=== PATIENT | female | born 1990 | race Caucasian/White ===

== ENCOUNTER 2017-05-07 21:38 | Inpatient (IN) | payer BC, OTHER ==
[~2017-05-07] VITALS: Ht 149.9 cm; Wt 68.2 kg
[2017-05-07] MEDS ORDERED: PRENTAB26 PO (22:56)
[2017-05-07 23:59] VITALS: Ht 149.9 cm; Wt 68.2 kg
[2017-05-08] MEDS ORDERED: LACTATED RINGER'S 1000ML 1,000 ML IV PRN (00:10)
[2017-05-08] MEDS ORDERED: BUPIVACAINE 0.25% 30 ML VIAL ONE ×2 (00:24→16:33)
[2017-05-08] MEDS ORDERED: EpHEDrine SULFATE INJ 50 MG/ML AMP ONE (00:25)
[2017-05-08] MEDS ORDERED: FENTANYL CITRATE INJ 50 MCG/1 ML 2 ML VIAL ONE ×2 (00:25→19:09)
[2017-05-08] MEDS ORDERED: FENTANYL 2MCG/ML ROPIV 1.25MG/ML 100ML BAG EPI ONE (00:25)
[2017-05-08 00:40] LABS: HEMATOCRIT 33.1 % (37-47); MEAN CELL VOLUME 78.8 fL (80-100); MEAN CORPUSCULAR HEMOGLOBIN 26.2 pg (25-34); MEAN CORPUSCULAR HGB CONC 33.2 g/dl (32-36); MEAN PLATELET VOLUME 8.9 fL (7.4-10.4); PLATELET COUNT 231 K/uL (130-400); WHITE BLOOD COUNT 10.92 K/uL (4.8-10.8)
[2017-05-08] MEDS ORDERED: NALOXONE HCL INJ 1 MG in SODIUM CHLORIDE 0.9% 1000ML 1,000 ML IV PRN (01:11)
[2017-05-08] MEDS ORDERED: LACTATED RINGER'S 1000ML 500 ML IV PRN ×2 (01:11→09:19)
[2017-05-08] MEDS ORDERED: NALBUPHINE HCL INJ 10 MG/ML AMP IV PRN (01:15)
[2017-05-08] MEDS ORDERED: ONDANSETRON INJ 2 MG/ML 2 ML VIAL IV PRN (01:15)
[2017-05-08] MEDS ORDERED: NALOXONE HCL INJ 0.4 MG/1 ML VIAL/CARP IV PRN (01:15)
[2017-05-08] MEDS ORDERED: EpHEDrine SULFATE INJ 50 MG/ML AMP IV PRN (01:15)
[2017-05-08] MEDS: LACTATED RINGER'S 1000ML 1,000 ML IV SCH ×3 (01:18→14:50)
[2017-05-08] MEDS: FENTANYL 2MCG/ML ROPIV 1.25MG/ML 100ML BAG EPI PRN ×3 (06:53→15:08)
[2017-05-08] MEDS ORDERED: OXYTOCIN 30 UNITS/500ML NSS IV PRN (09:30)
[2017-05-08 13:55] LABS: BASO % 0.1 %; BASO ABS # 0.02 K/uL (0-0.2); COMPLETE YES; EOS % 0.1 %; IG% 0.5 %; LYMPH ABS # 1.42 K/uL (1.2-3.4); MEAN CELL VOLUME 80.5 fL (80-100); MEAN CORPUSCULAR HEMOGLOBIN 26.2 pg (25-34); MEAN CORPUSCULAR HGB CONC 32.6 g/dl (32-36); MEAN PLATELET VOLUME 8.8 fL (7.4-10.4); MONO % 7.3 %; PLATELET COUNT 207 K/uL (130-400); RED BLOOD COUNT 4.35 M/uL (4.2-5.4); WHITE BLOOD COUNT 15.82 K/uL (4.8-10.8)
[2017-05-08] MEDS: AMPICILLIN IV 2,000 MG in SODIUM CHLOR 0.9% AD-VAN 100ML 100 ML IV SCH ×2 (15:17→19:45)
[2017-05-08] MEDS: GENTAMICIN IV SCH (15:50)
[2017-05-08] MEDS: DEXTROSE 5% IV SCH (15:50)
[2017-05-08] MEDS ORDERED: LACTATED RINGER'S 1000ML 1,000 ML IV ONE (18:13)
[2017-05-08] MEDS ORDERED: CITRIC ACID/SODIUM CITRATE 15 ML UDC PO ONE (18:15)
--- NOTE | 2017-05-08 18:21 | History and Physical ---
History & Physical Date & Time of Service: May 08, 2017 at 18:15 Chief Complaint: Check Labor Primary Care Physician: No Doctor, Assigned History of Present Illness Source: patient 26 yo at 39.5 wks presented last night with ctxs and admitted for labor SROM'ed this morning around 5 am Augmented her ctxs with pitocin Arrest of descent in active second phase of labor despite adequate ctxs and good pushing efforts Persistent OP Patient desires Csection, see QS notes for details of labor Past Medical/Surgical History none Social History Smoking Status: Never Smoker Smokeless Tobacco Use: No Alcohol Use: none Drug Use: none Marital Status: Housing status: lives with family Occupational Status: employed Multi-Drug Resistant Organisms History of MDRO: No Allergies Coded Allergies: Diphenhydramine (Verified Allergy, Severe, ANAPHYLAXIS, 05/07/17) edema of airway Home Medications Scheduled Multivit/Min/Iron/Fol Ac/Pren ( Vitamin), 1 TAB PO DAILY Review of Systems Constitutional: + fever, + chills, + sweats, + weight loss, + weakness, + fatigue, + problem reported Eyes: No worsening of vision, No eye pain, No redness, No discharge, No diplopia, No problem reported ENT: No hearing loss, No unusual epistaxis, No nasal symptoms, No sore throat, No tinnitus, No dental problems, No trouble swallowing, No problem reported Respiratory: No cough, No sputum, No wheezing, No shortness of breath, No dyspnea on exertion, No dyspnea at rest, No hemoptysis, No problem reported Cardiovascular: No chest pain, No orthopnea, No PND, No edema, No claudication , No palpitations, No problem reported Abdomen: No pain, No nausea, No vomiting, No diarrhea, No constipation, No GI bleeding, No problem reported Musculoskeletal: No joint pain, No muscle pain, No swelling, No calf pain, No problem reported Neurologic: No memory loss, No paralysis, No weakness, No numbness/tingling, No vertigo, No balance problems, No problem reported Physical Exam General Appearance: WD/WN, + mild distress Head: normocephalic, atraumatic Eyes: normal inspection, PERRL ENT: normal ENT inspection Neck: supple, no adenopathy Respiratory/Chest: chest non-tender, lungs clear Cardiovascular: regular rate, rhythm Abdomen/GI: soft, + pertinent finding (gravid) Genitourinary - Female: + pertinent finding (caput succanadeum, occiput posterior) Back: normal inspection, no CVA tenderness Extremities/Musculoskelatal: normal inspection, + pedal edema Skin: normal color, warm/dry, no rash Diagnostics Laboratory Results Results Past 24 Hours Test 05/08/17 00:24 05/08/17 13:43 Range/Units White Blood Count 10.92 15.82 4.8-10.8 K/uL Red Blood Count 4.20 4.35 4.2-5.4 M/uL Hemoglobin 11.0 11.4 12.0-16.0 g/dL Hematocrit 33.1 35.0 37-47 % Mean Corpuscular Volume 78.8 80.5 80-100 fL Mean Corpuscular Hemoglobin 26.2 26.2 25-34 pg Mean Corpuscular Hemoglobin Concent 33.2 32.6 32-36 g/dl RDW Standard Deviation 39.7 41.4 36.4-46.3 fL RDW Coefficient of Variation 14.0 14.2 11.5-14.5 % Platelet Count 231 207 130-400 K/uL Mean Platelet Volume 8.9 8.8 7.4-10.4 fL Neutrophils (%) (Auto) 83.0 % Lymphocytes (%) (Auto) 9.0 % Monocytes (%) (Auto) 7.3 % Eosinophils (%) (Auto) 0.1 % Basophils (%) (Auto) 0.1 % Neutrophils # (Auto) 13.13 1.4-6.5 K/uL Lymphocytes # (Auto) 1.42 1.2-3.4 K/uL Monocytes # (Auto) 1.16 0.11-0.59 K/uL Eosinophils # (Auto) 0.01 0-0.5 K/uL Basophils # (Auto) 0.02 0-0.2 K/uL Immature Granulocyte % (Auto) 0.5 % Immature Granulocyte # (Auto) 0.08 0.00-0.02 K/uL Impression Assessment and Plan 26 yo at 39. wks , arrest of descent, persisten O[ Being treated for intraamniotic infection Plan: primary Csection Understands the risks, signed the informed consent see QS notes Advanced Directives Existing Living Will: No Existing Power of Rehabilitator: No VTE Prophylaxis VTE Risk Assessment Done? Y/N: Yes Risk Level: Moderate
[2017-05-08] MEDS ORDERED: CLINDAMYCIN IV 900 MG in DEXTROSE 5% 100ML 100 ML IV SCH (18:30)
[2017-05-08] MEDS ORDERED: MORPHINE SULFATE PF 2MG/2ML SYR ONE (19:10)
[2017-05-08] MEDS ORDERED: PROPOFOL IV EMULSION 10 MG/ML 20 ML VIAL IV ONE (19:32)
[2017-05-08] MEDS ORDERED: OXYTOCIN INJ 10 UNITS/ML VIAL ONE ×2 (19:33→20:10)
[2017-05-08] MEDS ORDERED: SUCCINYLCHOLINE CHLORIDE 20 MG/ML 10 ML VIAL IV ONE (19:33)
[2017-05-08] MEDS ORDERED: PHENYLEPHRINE 100MCG/ML 5ML SYR ONE (19:33)
[2017-05-08] MEDS ORDERED: METHYLERGONOVINE MALEATE 0.2 MG/ML AMP ONE (19:48)
[2017-05-08] MEDS ORDERED: MoRPHine SULFATE PF 1 MG/ML 10 ML AMP/VIAL EPI PRN (20:00)
[2017-05-08] MEDS ORDERED: CONTINUE MEDICATION ONE (20:00)
[2017-05-08] MEDS ORDERED: MoRPHine SULFATE 2 MG/ML CARP IV PRN (20:00)
[2017-05-08] MEDS ORDERED: NO NARCOTICS OR SEDATIVES SCH (20:00)
[2017-05-08] MEDS ORDERED: SUPERCREAM 0.870 % 15GM JAR EXT PRN (20:15)
[2017-05-08] MEDS ORDERED: DIPHTHERIA/TETANUS/PERTUSSIS 0.5 ML SYR/VIAL IM. ONE (20:15)
[2017-05-08] MEDS ORDERED: HYDROCORTISONE ACETATE 25 MG SUPP PR PRN (20:15)
[2017-05-08] MEDS ORDERED: SENNA 8.6 MG TAB PO PRN (20:15)
[2017-05-08] MEDS ORDERED: MAGNESIUM HYDROXIDE SUSP 30 ML UDC PO PRN (20:15)
[2017-05-08] MEDS ORDERED: BENZOCAINE 20% AER SPR 82.5 GM CAN EXT PRN (20:15)
[2017-05-08] MEDS ORDERED: LACTATED RINGER'S 1000ML 1,000 ML IV SCH (20:15)
[2017-05-08] MEDS ORDERED: LANOLIN OINT EXT PRN ×2 (20:15)
[2017-05-08] MEDS ORDERED: MEASLES, MUMPS & RUBELLA VIRUS VIAL SQ. ONE (20:15)
[2017-05-08] MEDS ORDERED: OXYTOCIN INJ 20 UNITS in LACTATED RINGER'S 1000ML 1,000 ML IV SCH (21:30)
[2017-05-08] MEDS: KETOROLAC TROMETHAMINE 30 MG/ML VIAL IV. PRN (22:06)
[2017-05-08] MEDS: OXYTOCIN INJ 20 UNITS in D5W AND LACTATED RINGERS 1,000 ML IV SCH (22:30)
--- NOTE | 2017-05-08 22:57 | Anesthesiology Progress Note ---
Anesthesia Post Op Note Date & Time May 08, 2017 at 22:57 Vital Signs Pain Intensity: 4.0 Notes Mental Status: alert / awake / arousable, participated in evaluation Pt Amnestic to Procedure: Yes Nausea / Vomiting: adequately controlled Pain: adequately controlled Airway Patency, RR, SpO2: stable & adequate BP & HR: stable & adequate Hydration State: stable & adequate Neuraxial Anesthesia: was administered, sensory block is resolving Anesthetic Complications: no major complications apparent
--- NOTE | 2017-05-08 23:01 | OPERATIVE REPORT ---
DATE OF OPERATION: 05/08/2017 PREOPERATIVE DIAGNOSIS: The patient is a 26-year-old G1, P0 at 39 weeks and 4 days of gestation, and arrest of descent at second stage of labor and persistent occiput posterior position and maternal fever suggesting intra-amniotic infection. POSTOPERATIVE DIAGNOSIS: Same. PROCEDURE: Primary low transverse via Pfannenstiel skin incision. SURGEON: Dr. Gee. NUT GRADER: Dr. Wild. ESTIMATED BLOOD LOSS: 800. FLUIDS: 2000 mL of lactated Ringer. SPECIMENS: Placenta and cord blood. DRAINS: Wills catheter drained 125 mL of urine. ANESTHESIA: Spinal, Dr. Traore. COMPLICATIONS: None. FINDINGS: Baby was a viable female infant, Apgars 9/9, delivered at 19:27 p.m. and weight was 3538 grams. Baby was in cephalic presentation with occiput posterior position, molding and caput succedaneum. Maternal findings: Normal uterus, fallopian tubes and ovaries. PROCEDURE: The patient was taken to the operating room where epidural anesthesia was found to be inadequate. She was given spinal anesthesia without difficulty. She was placed in dorsal supine position with a leftward tilt. She was prepared and draped in usual sterile fashion. A Pfannenstiel skin incision was made and carried through to the underlying layer of fascia with the Bovie. The fascia was incised in midline and incision extended laterally with the help of Brothers scissors. The upper aspect of the fascial incision was then grasped with 2 Liss clamps, elevated, underlying rectus muscles were dissected off sharply with Brothers scissors. The lower aspect of the fascial incision was then grasped with 2 Liss clamps, elevated, underlying rectus muscles are dissected sharply with Brothers scissors and the rectus muscles were in the midline and peritoneum was entered bluntly with fingers. Peritoneal incision was extended superiorly and inferiorly with good visualization of the bladder. Bladder blade was inserted. Vesicouterine peritoneum was identified, grasped with pickups, entered sharply with Metzenbaum scissors and bladder flap was created digitally and bladder blade was reinserted. Lower uterine segment was incised in transverse fashion. Incision was extended laterally with the help of fingers. Clear amniotic fluid was obtained and then the baby's head was brought to the incision from vagina manually and the head was delivered without difficulty. Shoulders were delivered with minimal traction and mouth and nose were suctioned. Cord was clamped x2 and cut and baby was handed off to the awaiting commercial manager, Dr. Reyes. The cord blood was obtained. Placenta was delivered manually as intact and complete. Uterus was exteriorized, cleared of all the clots and debris. Uterine incision was repaired with 0 Vicryl in a running locked fashion and a second imbricating layer was placed with the same suture of 0 Vicryl in a running locked fashion. Excellent hemostasis was achieved. Posterior cul-de-sac was checked to be intact with no sutures felt and it was irrigated with warm normal saline and suctioned. The patient's ovaries and fallopian tubes were noted to be normal. Incision was checked to be hemostatic again and the uterus was returned to the abdomen. Pelvis was irrigated with warm normal saline and suctioned. Incision was checked to be again hemostatic. Parietal peritoneum was reapproximated with 3-0 Vicryl in a running fashion. Rectus muscles were reapproximated with the same suture in a running fashion and the rectus fascia was reapproximated with 0 Vicryl in a running fashion starting from both corners and meeting in the midline. The subcuticular fat tissue was brought together with 3-0 Vicryl in a running fashion. Skin was closed with 4-0 Monocryl in a subcuticular fashion. The patient tolerated the procedure well. Sponge, lap, needle and instrument counts were correct x3. She was given 2 grams of ampicillin and 900 mg of clindamycin before surgery. She was given 3 grams of gentamicin earlier during labor and those to be continued . She was brought to recovery room in stable condition. No complication happened. I was and Dr. Wild present during whole procedure. I attest to the content of the Intraoperative Record and any orders documented therein. Any exceptions are noted below. ASHU
[2017-05-08 23:30] VITALS: BP 118/81; PULSE 88; TEMP 36.5; O2SAT 94
[2017-05-08] MEDS: MEPERIDINE HCL 25 MG/ML CARP IV PRN (23:57)
[2017-05-09] VITALS (21 sets, daily range): BP systolic 97–119; BP diastolic 65–84; PULSE 81–108; TEMP 36.5–36.9; O2SAT 94–97
[2017-05-09] MEDS: CLINDAMYCIN IV 900 MG in DEXTROSE 5% 100ML 100 ML IV SCH ×3 (02:51→18:37)
[2017-05-09] MEDS: AMPICILLIN IV 2,000 MG in SODIUM CHLOR 0.9% AD-VAN 100ML 100 ML IV SCH ×5 (03:48→22:00)
[2017-05-09] MEDS: KETOROLAC TROMETHAMINE 30 MG/ML VIAL IV. PRN ×3 (03:49→16:22)
[2017-05-09 06:52] LABS: BASO % 0.1 %; BASO ABS # 0.01 K/uL (0-0.2); COMPLETE YES; EOS % 0.2 %; HEMATOCRIT 30.2 % (37-47); IG% 0.3 %; LYMPH % 9.4 %; LYMPH ABS # 1.37 K/uL (1.2-3.4); MEAN CELL VOLUME 80.5 fL (80-100); MEAN CORPUSCULAR HEMOGLOBIN 25.3 pg (25-34); MEAN CORPUSCULAR HGB CONC 31.5 g/dl (32-36); MEAN PLATELET VOLUME 8.5 fL (7.4-10.4); MONO % 7.1 %; NEUT % 82.9 %; PLATELET COUNT 180 K/uL (130-400); RED BLOOD COUNT 3.75 M/uL (4.2-5.4); WHITE BLOOD COUNT 14.55 K/uL (4.8-10.8)
[2017-05-09] MEDS: FERROUS SULFATE 325 MG TAB PO SCH (08:00)
[2017-05-09] MEDS: DOCUSATE SODIUM 100 MG CAP PO SCH ×2 (08:00→19:44)
[2017-05-09] MEDS: PRENATAL VITAMIN TAB PO SCH (08:00)
[2017-05-09] MEDS: SIMETHICONE 80 MG CHEW PO SCH ×4 (08:00→19:44)
[2017-05-09] MEDS: MEPERIDINE HCL 25 MG/ML CARP IV PRN (08:06)
[2017-05-09] MEDS: OXYTOCIN INJ 20 UNITS in D5W AND LACTATED RINGERS 1,000 ML IV SCH (08:26)
--- NOTE | 2017-05-09 11:20 | Surgery Progress Note ---
Surgery Progress Note Date of Service May 09, 2017. Subjective Post OP Day: 1 + feeling well, + ambulating, + flatus, + pain controlled Objective Vital Signs: Date Time Temp Pulse Resp B/P (MAP) Pulse Ox O2 Delivery O2 Flow Rate FiO2 05/09/17 10:00 16 94 05/09/17 09:00 18 94 05/09/17 08:00 18 94 05/09/17 08:00 94 Room Air 05/09/17 07:35 36.7 86 20 115/80 (92) 96 Room Air 05/09/17 07:00 18 95 05/09/17 06:00 20 94 05/09/17 05:00 20 94 05/09/17 04:00 20 95 05/09/17 04:00 36.5 97 20 119/84 (96) 95 Room Air 05/09/17 03:00 18 94 05/09/17 02:00 18 94 05/09/17 01:00 18 94 05/09/17 00:30 81 20 112/78 (89) 94 Room Air 05/09/17 00:01 20 94 05/08/17 23:30 94 Room Air 05/08/17 23:30 94 Room Air 05/08/17 23:30 36.5 88 18 118/81 (93) 94 Room Air 05/08/17 23:30 18 94 Abdomen: non tender, non distended, soft Incision(s): clean, dry, intact Extremities: non-tender, normal inspection, no pedal edema Laboratory Results: Results Past 24 Hours Test 05/08/17 13:43 05/09/17 06:43 Range/Units White Blood Count 15.82 14.55 4.8-10.8 K/uL Red Blood Count 4.35 3.75 4.2-5.4 M/uL Hemoglobin 11.4 9.5 12.0-16.0 g/dL Hematocrit 35.0 30.2 37-47 % Mean Corpuscular Volume 80.5 80.5 80-100 fL Mean Corpuscular Hemoglobin 26.2 25.3 25-34 pg Mean Corpuscular Hemoglobin Concent 32.6 31.5 32-36 g/dl Platelet Count 207 180 130-400 K/uL Mean Platelet Volume 8.8 8.5 7.4-10.4 fL Neutrophils (%) (Auto) 83.0 82.9 % Lymphocytes (%) (Auto) 9.0 9.4 % Monocytes (%) (Auto) 7.3 7.1 % Eosinophils (%) (Auto) 0.1 0.2 % Basophils (%) (Auto) 0.1 0.1 % Neutrophils # (Auto) 13.13 12.06 1.4-6.5 K/uL Lymphocytes # (Auto) 1.42 1.37 1.2-3.4 K/uL Monocytes # (Auto) 1.16 1.04 0.11-0.59 K/uL Eosinophils # (Auto) 0.01 0.03 0-0.5 K/uL Basophils # (Auto) 0.02 0.01 0-0.2 K/uL RDW Standard Deviation 41.4 41.7 36.4-46.3 fL RDW Coefficient of Variation 14.2 14.3 11.5-14.5 % Immature Granulocyte % (Auto) 0.5 0.3 % Immature Granulocyte # (Auto) 0.08 0.04 0.00-0.02 K/uL Assessment & Plan regular diet POD#1 advance diet/care
[2017-05-09] MEDS: GENTAMICIN IV SCH (15:12)
[2017-05-09] MEDS: DEXTROSE 5% IV SCH (15:12)
[2017-05-09] MEDS ORDERED: DC INTRASPINAL MORPHINE SCH (19:00)
[2017-05-09] MEDS ORDERED: KETOROLAC TROMETHAMINE 30 MG/ML VIAL IV. PRN (19:00)
[2017-05-09] MEDS ORDERED: ONDANSETRON INJ 2 MG/ML 2 ML VIAL IV PRN (19:00)
[2017-05-09] MEDS ORDERED: MEPERIDINE HCL 50 MG/ML CARP IV PRN ×2 (19:00)
[2017-05-09] MEDS ORDERED: PROMETHAZINE HCL INJ 25 MG in SODIUM CHLORIDE 0.9% 50ML 50 ML IV PRN (19:00)
[2017-05-09] MEDS ORDERED: OXYCODONE/ACETAMINOPHEN 5-325 TAB PO PRN (19:00)
[2017-05-09] MEDS: IBUPROFEN 600 MG TAB PO PRN (19:44)
[2017-05-09] MEDS: OXYCODONE/ACETAMINOPHEN 5-325 TAB PO PRN (19:45)
[2017-05-09] MEDS ORDERED: BISACODYL 5 MG TABEC PO ONE (22:00)
[2017-05-10] MEDS: AMPICILLIN IV 2,000 MG in SODIUM CHLOR 0.9% AD-VAN 100ML 100 ML IV SCH ×2 (04:13→10:08)
[2017-05-10] MEDS: IBUPROFEN 600 MG TAB PO PRN ×5 (05:24→21:47)
[2017-05-10 06:47] LABS: HEMATOCRIT 25.8 % (37-47)
[2017-05-10 07:45] VITALS: BP 96/65; PULSE 92; TEMP 36.5
[2017-05-10] MEDS: FERROUS SULFATE 325 MG TAB PO SCH (07:52)
[2017-05-10] MEDS: PRENATAL VITAMIN TAB PO SCH (07:52)
[2017-05-10] MEDS: DOCUSATE SODIUM 100 MG CAP PO SCH ×2 (07:52→19:53)
[2017-05-10] MEDS: SIMETHICONE 80 MG CHEW PO SCH ×4 (07:52→19:53)
--- NOTE | 2017-05-10 08:10 | OB/GYN Progress Note ---
[facility] Progress Note Date of Service May 10, 2017. Subjective conversation w/ patient, physical exam Ambulation: ambulating normally Voiding: no voiding problems Passing Gas: Yes Diet Tolerance: Regular Diet Lochia: Small Pain: 3/10 Notes: Doing well, no concerns. Pain well controlled. Ambulating without difficulty. Tolerating regular diet, +flatus, -BM. Review of Systems Constitutional: No fever, No chills, No sweats, No weight loss, No weakness, No fatigue, No problem reported Respiratory: No cough, No sputum, No wheezing, No shortness of breath, No dyspnea on exertion, No dyspnea at rest, No hemoptysis, No problem reported Cardiac: No chest pain, No orthopnea, No PND, No edema, No claudication, No palpitations, No problem reported Abdomen: No pain, No nausea, No vomiting, No diarrhea, No constipation, No GI bleeding, No problem reported Objective Vital Signs Date Time Temp Pulse Resp B/P (MAP) Pulse Ox O2 Delivery O2 Flow Rate FiO2 05/09/17 23:35 36.5 88 18 97/65 (76) Room Air 05/09/17 23:35 Room Air 05/09/17 19:50 36.7 108 18 109/75 (86) 97 Room Air 05/09/17 15:30 96 Room Air 05/09/17 15:30 36.7 106 20 105/72 (83) 96 Room Air 05/09/17 15:00 18 97 05/09/17 14:00 18 96 05/09/17 13:00 18 96 05/09/17 12:00 18 95 05/09/17 12:00 36.9 95 18 101/69 (80) 96 Room Air 05/09/17 11:00 18 96 05/09/17 10:00 16 94 05/09/17 09:00 18 94 Physical Exam General Appearance: WELL-APPEARING Abdomen: normal bowel sounds, soft Fundus: Firm Incision Description: Clean, Dry & Intact Extremities: normal range of motion, non-tender, no calf tenderness Laboratory Results Last 24 Hours Test 05/10/17 06:08 Hemoglobin 8.4 g/dL Hematocrit 25.8 % Assessment and Plan Post-Op Day Number: 2 Continue Routine Care: -Continue routine postop care -Incision dressing removed and is c/d/i -Anticipate d/c home tomorrow
[2017-05-10] MEDS: OXYCODONE/ACETAMINOPHEN 5-325 TAB PO PRN ×4 (09:34→21:47)
[2017-05-10] MEDS ORDERED: NURSING VERBAL MED ORDER ONE (11:30)
[2017-05-10 15:30] VITALS: BP 120/84; PULSE 86; TEMP 36.4
[2017-05-10] MEDS ORDERED: BISACODYL 10 MG SUPP PR PRN (20:15)
[2017-05-10 23:30] VITALS: BP 110/77; PULSE 99; TEMP 36.4
[2017-05-11] MEDS: IBUPROFEN 600 MG TAB PO PRN ×2 (02:45→07:13)
[2017-05-11] MEDS: OXYCODONE/ACETAMINOPHEN 5-325 TAB PO PRN ×2 (02:46→07:14)
[2017-05-11 07:25] VITALS: BP 118/83; PULSE 96; TEMP 36.4; O2SAT 100
[2017-05-11 07:40] VITALS: BP 106/72; PULSE 85; TEMP 36.7; O2SAT 96
[2017-05-11] MEDS: FERROUS SULFATE 325 MG TAB PO SCH (07:47)
[2017-05-11] MEDS: SIMETHICONE 80 MG CHEW PO SCH ×2 (07:47→12:40)
[2017-05-11] MEDS: PRENATAL VITAMIN TAB PO SCH (07:47)
[2017-05-11] MEDS: DOCUSATE SODIUM 100 MG CAP PO SCH (07:47)
[2017-05-11] MEDS ORDERED: MTR600X PO (09:16)
[2017-05-11] MEDS ORDERED: OXYC-57 PO (09:16)
--- NOTE | 2017-05-11 09:18 | Discharge Instructions ---
Discharge Instructions Date of Service May 11, 2017. Admission Reason for Admission: Check Labor Discharge Discharge Diagnosis / Problem: term delivered Discharge Goals Goal(s): Routine recovery after delivery Activity Recommendations Activity Limitations: as noted below Lifting Limitations: no more than 10 pounds Exercise/Sports Limitations: gradually increase as tolerated May Resume Sexual Activity: after follow-up appointment Shower/Bathe: no limitations Driving or Machine Use: resume 3 days after discharge . Instructions / Follow-Up Instructions / Follow-Up ACTIVITY RECOMMENDATIONS: * Gradual return to full activity over the next 2-3 weeks. * No lifting - nothing heavier than baby over the next 2-3 weeks. * Do not engage in vigorous exercise, sexual activity or sports until cleared by your physician. * Do not drive or operate any motorized equipment until cleared by your physician. * You may shower/bathe daily. BREAST CARE: If you are not breast feeding: * Wear a supportive bra 24 hours a day for one to two weeks. * Avoid stimulating your breasts and nipples as much as possible during the first few weeks after delivery. * When taking a shower, have the warm water hit your back, not breasts. * When your breasts feel full, apply ice packs. Usually three to four times a day helps ease the discomfort. * Take a mild pain medication (Tylenol/Motrin) when you are uncomfortable. If breast feeding: * Use breast milk to lubricate nipples. Lansinoh cream may be used for sore nipples. You do not need to remove cream prior to breast feeding. If using a different brand of cream, check the label for directions regarding removal of cream prior to nursing. * Wear a supportive bra. * If having problems with breasts or breast feeding, call a wine consultant or your health care provider. EPISIOTOMY CARE: After delivery, if you have an episiotomy (stitches), the following steps will ease discomfort and aid healing. * For the first 24 hours after delivery, place ice packs next to your episiotomy to help reduce swelling. * After the first 24 hour-period, sitz baths, either portable or in the tub, are suggested. A shower with a shower arm sprayed over the episiotomy may be comforting. * Kayleen care should be done after each voiding and bowel movement. Squirt warm water from a plastic bottle over the perineum (region of the body between the anus and urinary opening) and pat dry. * Use Dermoplast to ease discomfort. Shake container. [place] directly over the episiotomy. * Place a Tucks on a clean sanitary pad next to your episiotomy. OVER THE COUNTER MEDICATION: * For discomfort or pain, you may use Acetaminophen (Tylenol), Ibuprofen (Advil ), or Naproxen (Aleve) following the package directions. * For constipation you may use Colace following the package directions. SPECIAL CARE INSTRUCTIONS: When you are discharged from the hospital, it is important for you to follow the instructions listed below: * During the first week at home, you should be able to care for yourself and your baby. In addition, the usual light household activities are encouraged. * Limit your activities to the way you feel. Do not try to clean the house or move furniture. Be sensible. * If you actively engage in sports and have done so up until the time of your delivery, you may resume these activities as soon as you feel able. This may take up to one month or even longer. Use good judgment. * Continue to take your vitamins for at least six weeks after the of your baby. * Your diet need not be limited unless you were on a special diet before your delivery. Breast-feeding mothers need around 2500 calories per day and at least 64-80 ounces of fluid per day (8 to 10 glasses). * You should eat foods from the four major food groups. Crash diets or fad diets are to be avoided. Eating lean meats, fresh fruits and vegetables, low-fat dairy products, high fiber foods and a regular exercise program, will help you get back to your pre- weight without putting your health at risk. * Constipation is sometimes a problem after delivery. Take a mild laxative as needed. If breast feeding, Milk of Magnesia is acceptable to use. You may use a suppository or Fleets enema if no episiotomy. * A daily shower or tub bath is suggested. Be sure to thoroughly and gently dry the perineum. * A bloody vaginal discharge will usually continue until around four weeks post . A small amount of bleeding may continue for as long as six weeks. Vaginal discharge changes from the bright red bleeding after delivery to pink then brownish and finally yellowish-pink before becoming white and disappearing. * Bleeding may increase with activity. Your first period may come in 4-8 weeks. If you are breast feeding, your period may be delayed even longer. * [place] (sex) can begin whenever both you and your partner feel comfortable and do not have any form of genital infection. It is recommended that you wait until after your return appointment and discuss with your physician. If you have questions, please talk to your health care practitioner. A condom should be used to prevent infection and . * Foreplay, gentle intercourse and lubrication is very important the first several times to prevent pain. A water-based lubricant such as K-Y jelly or Astroglide may be used. * Tampons may be used six weeks after delivery. * Douching should be avoided for 6 weeks after delivery. * If you have RH negative blood and your baby is RH positive, you will receive RHOGAM by injection prior to discharge. The nurse will give you a card to keep with you that has the date and place that you received RHOGAM after delivery. * During your care, you had a Rubella screen done to check for the presence of rubella antibodies in your blood. If your test was negative, you will receive a Rubella vaccine prior to discharge. This vaccine may cause a fever, soreness at the injection site and flu-like symptoms. If these symptoms persist, notify your health care practitioner. is not advised for three months after a Rubella vaccine. There is a higher chance of having a baby with defects if conceived within three months of getting the vaccine. * If you were discharged 24 hours from delivery or before 48 hours: Visiting nurses will come to your home 48 hours after discharge to assess you and your baby. The visiting nurse will meet with you while you are in the hospital to arrange a time and get directions to your home. * Verbalizes understanding of car seat law as reviewed with patient nursing. * Car Seat hand-out given and reviewed with patient by nursing. * Shaken baby information reviewed with patient by nursing. Call you doctor if: * Heavy bleeding (saturating several pads an hour) or passing clots the size of your fist. * A fever >101 degrees F (38.3 degrees C) on two occasions four hours apart and/or chills. * Unusual pain in the pelvic or vaginal areas. * "Baby Blues" lasting longer than two weeks. If you have any questions or concerns, call your health care practitioner at . FOLLOW-UP VISIT: * Please call the office at to schedule a 6 week examination. It is important you keep this appointment. * It is important for you to make arrangements for either yearly or twice yearly check-ups thereafter. Current Hospital Diet Patient's current hospital diet: Regular OB Diet Discharge Diet Recommended Diet: Regular OB Diet Procedures Procedures Performed: Primary low uterine transverse section Pending Studies Studies pending at discharge: no Medical Emergencies . Who to Call and When: Medical Emergencies: If at any time you feel your situation is an emergency, please call 911 immediately. . Non-Emergent Contact Non-Emergency issues call your: Primary Care Provider . . "Provider Documentation" section prepared by Allen Pulido. . VTE Core Measure Inpt VTE Proph given/why not?: Treatment not indicated
--- NOTE | 2017-05-11 09:20 | Surgery Progress Note ---
Surgery Progress Note Date of Service May 11, 2017. Subjective Post OP Day: 3 + feeling well, + ambulating, + flatus, + pain controlled, + diet Objective Vital Signs: Date Time Temp Pulse Resp B/P (MAP) Pulse Ox O2 Delivery O2 Flow Rate FiO2 05/11/17 07:25 36.4 96 20 118/83 (95) 100 Room Air 05/10/17 23:30 36.4 99 18 110/77 (88) Room Air 05/10/17 23:30 Room Air 05/10/17 15:30 Room Air 05/10/17 15:30 36.4 86 20 120/84 (96) Room Air General Appearance: no apparent distress Abdomen: non tender, non distended, soft Incision(s): clean, dry, intact Extremities: normal range of motion, non-tender, normal inspection, no pedal edema Assessment & Plan POD#3 discharged POD#1 advance diet/care
[2017-05-11 12:25] VITALS: BP_DIAS 72; PULSE 85; TEMP 36.7
== END 2017-05-11 12:40 | disposition home or self-care (01) | DRG 766 ==
LOC: C.OPB 21:38 → C.LD 21:40 → C.OPB 23:25 → C.LD 23:25 → C.OBG 05-08 23:20
PROVIDERS: ADMIT Obstetrics & Gynecology; ATTEND Obstetrics & Gynecology
PROC: 10D00Z1 Extraction of Products of Conception, Low, Open Approach (ICD-10-PCS; principal; 2017-05-08 18:51)
DX: O62.1 Secondary uterine inertia (principal); O75.81 Maternal exhaustion complicating labor and delivery; Z3A.39 39 weeks gestation of pregnancy; Z37.0 Single live birth

== ENCOUNTER 2023-02-11 07:30 | Inpatient (IN) ==
--- NOTE | 2023-02-01 10:29 | Anesthesiology Consultation ---
Date of Service February 01, 2023 Assessment & Plan (1) Encounter for pre-operative examination: Chart Review Chart Review: data entry clerk initiated -COVID screening: Per PAT nursing assessment on 02/01/23. No known COVID-19 positive contacts or current COVID-19 related symptoms. Travel screen negative. Patient is NOT vaccinated for Covid. At surgeon discretion if preop Covid testing being done. 05/08/17= Done under SAB at L3-4 with 1 attempt. "Pt to the OR by Dr. Rodriguez she appeared to be very uncomfortable so Dr. Rodriguez pulled epidural for spinal placement. Spinal anesthetic placed uneventfully. Patient stated that she felt SOB but was able to talk. D nurse held O2, while propofol and SMX drawn up to prepare for intubation. Pt also placed in reverse [place]. Pt maintained stable vitals so intubation was not attempted." History Surgery Operation Date: 02/11/23 07:30 Proposed Procedures p Section (Delivery of Baby Through Abdominal Incision) - Allen Fernandez MD, FACOG Height/Weight Height: 4 ft 11 in Weight: 71.668 kg Allergies Allergy/AdvReac Type Severity Reaction Status Date / Time diphenhydramine Allergy Severe ANAPHYLAXIS Verified 01/31/23 11:37 Medications Home Medications Medication Instructions Recorded Confirmed Last Taken prenat.vits,antonio,[id number] 1 tab PO DAILY 07/07/22 02/01/23 Unknown Past Medical History Medical History No known health problems Past Family History Family History Denies family history of Ovarian cancer Breast cancer Colorectal cancer Past Surgical History Surgical History S/P section S/P loop electrosurgical excision procedure Social History Smoking Status: Former smoker tobacco type: cigarettes Smoking cigarettes per day: quit ~7 yrs ago Do You Dip or Chew Tobacco: No Hx Alcohol Use: No Hx Substance Use: No substance use type: does not use
[~2023-02-11 07:30] MED LIST: CITRIC ACID/SODIUM CITRATE 15 ML UDC PO SCH; LACTATED RINGER'S 1,000 ML IV SCH; ceFAZolin 2,000 MG in SYRINGE 0 ML IV SCH
--- NOTE | 2023-02-11 08:13 | History & Physical Report ---
Date of Service February 11, 2023 Assessment & Plan (1) Encounter for pre-operative examination: Plan: Repeat section. The patient was counseled to the nature of the procedure including alternatives such as labor. Risks were discussed including bleeding infection injury to bowel bladder ureter vessels and even baby. The risks of internal organ injury were discussed as being higher with prior sections. Deep Vein Thrombosis, pulmonary embolus and breakdown of the incision discussed. Deep vein thrombosis pulmonary embolus hernia and failure of the incision to heal were discussed Patient verbalized understanding of this and was given ample time to ask questions History of Present Illness Primary Care Provider: Estimated Delivery Date Method Current WG Current Estimate 02/17/23 LMP (Certain) 39w 0d Other Estimates 02/21/23 Ultrasound #1 38w 3d LMP: 05/13/22 : 2 Full term: 1 Premature: 0 Total Number of Induced Abortions: 0 Total Number of Spontaneous Abortions: 0 Ectopics: 0 Multiple births: 0 Number of Living Children: 1 and Delivery Plans Previous --ftd desires repeat c/s. C/S SCHEDULED FOR 02/11/[address] SYED bailey 2019--janina 3, pap pp declines covid and flu vaccines--recommended Rh Negative *Rhogam candidate IUGR - resolved 11/25 *Twice weekly NST/DVP@Dx *Weeklyl doppler@Dx *Growth US Q4wk @Dx *Deliver [id number] (unless abnml flow) *Deliver 37wks (less than 3rd%) Allergies Allergy/AdvReac Type Severity Reaction Status Date / Time diphenhydramine Allergy Severe ANAPHYLAXIS Verified 02/10/23 10:31 Home Medications Medication Instructions Recorded Confirmed Type prenat.vits,antonio,[id number] 1 tab PO DAILY 07/07/22 02/10/23 History Patient History Medical History No known health problems Surgical History S/P section S/P loop electrosurgical excision procedure Family History Denies family history of Ovarian cancer Breast cancer Colorectal cancer Social History Smoking Status: Former smoker Cigarettes Per Day: quit ~7 yrs ago; Second Hand Exposure: No; Do You Dip or Chew Tobacco: No; Hx Alcohol Use: No Hx Substance Use: No Preferred Language: Danish Communication Ability: Effective Locker Room Supervisor Required: No Beliefs That Will Affect Care: None marital status: marital status details: Josué Mendoza (33) [phone] Current Living Situation: Spouse and Family Current Living Situation Comment: lives with spouse, daughter current occupational status: 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
[2023-02-11] MEDS ORDERED: ONDANSETRON INJ 2 MG/ML 2 ML VIAL ONE (08:26)
[2023-02-11] MEDS ORDERED: fentaNYL citrate PF 100 MCG/2 ML VIAL ONE (08:26)
[2023-02-11] MEDS ORDERED: PHENYLEPHRINE 100MCG/ML 5ML SYR ONE (08:26)
[2023-02-11] MEDS ORDERED: MoRPHine SULFATE PF 1 MG/ML 10 ML AMP/VIAL ONE (08:26)
[2023-02-11] MEDS ORDERED: OXYTOCIN 10 UNITS/ML VIAL ONE (08:26)
[2023-02-11] MEDS ORDERED: OXYTOCIN 30 UNITS/500 ML BAG IV PRN (08:31)
[2023-02-11] MEDS ORDERED: LACTATED RINGER'S 1,000 ML IV PRN (08:31)
[2023-02-11] MEDS ORDERED: LIDOCAINE 1% LOCAL 20 ML VIAL INFIL PRN (08:31)
[2023-02-11] MEDS ORDERED: LACTATED RINGER'S 1,000 ML IV SCH (08:45)
[2023-02-11 09:39] LABS: Basophils # (auto) 0.03 K/uL (0-0.2); Basophils % (auto) 0.4 %; Eosinophils # (auto) 0.03 K/uL (0-0.50); Eosinophils % (auto) 0.4 %; Hematocrit (blood only) 37.3 % (37.0-47.0); Hemoglobin 13.1 g/dl (12.0-16.0); Immature Granulocytes # (auto) 0.06 K/uL (0.01-0.20); Immature Granulocytes % (auto) 0.7 %; Lymphocytes # (auto) 1.57 K/uL (1.2-3.4); Lymphocytes % (auto) 18.9 %; Mean Corpuscular Hemoglobin 31.6 pg (25.0-34.0); Mean Corpuscular Hgb Conc 35.1 g/dL (32.0-36.0); Mean Corpuscular Volume 89.9 fL (80.0-100.0); Mean Platelet Volume 9.2 fL (9.4-12.4); Monocytes % (auto) 7.2 %; Neutrophils # (auto) 6.03 K/uL (1.40-6.50); Neutrophils % (auto) 72.4 %; Platelet Count 185 K/uL (130-400); RDW Coefficient of Variation 13.3 % (11.5-14.5); RDW Standard Deviation 42.9 fL (36.4-46.3); Red Blood Count 4.15 M/uL (4.20-5.40); White Blood Count 8.32 K/ul (4.8-10.8)
[2023-02-11] MEDS ORDERED: LACTATED RINGER'S 500 ML IV PRN (10:52)
[2023-02-11] MEDS ORDERED: PROMETHAZINE HCL 6.25 MG in SODIUM CHLORIDE 0.9% 50 ML IV PRN (10:52)
[2023-02-11] MEDS ORDERED: ONDANSETRON INJ 2 MG/ML 2 ML VIAL IV PRN (10:52)
[2023-02-11] MEDS ORDERED: NALOXONE HCL 0.08 MG in SYRINGE 1.8 ML IV PRN (10:52)
[2023-02-11] MEDS ORDERED: HYDROmorphone INJ 0.5 MG/0.5 ML SYR IV PRN (10:52)
[2023-02-11] MEDS ORDERED: MoRPHine SULFATE PF 1 MG/ML 10 ML AMP/VIAL INT SPINAL ONE (10:52)
[2023-02-11] MEDS ORDERED: ePHEDrine sulfate 50 MG/ML AMP IV PRN (10:52)
[2023-02-11] MEDS ORDERED: NALOXONE HCL 1 MG in SODIUM CHLORIDE 0.9% 1000ML 1,000 ML IV PRN (10:52)
[2023-02-11] MEDS ORDERED: NALOXONE HCL 0.4 MG/1 ML VIAL/CARP IV PRN (10:52)
[2023-02-11] MEDS ORDERED: NALBUPHINE HCL INJ 10 MG/ML AMP IV PRN (10:52)
[2023-02-11] MEDS ORDERED: SODIUM CHLORIDE 0.9% 1000ML 1,000 ML IV SCH (11:00)
[2023-02-11] MEDS ORDERED: NO NARCOTICS OR SEDATIVES SCH (11:00)
[2023-02-11] MEDS ORDERED: DC INTRASPINAL MORPHINE SCH (11:00)
--- NOTE | 2023-02-11 11:44 | Operative Report ---
PG Post Operative Report Pre & Post Diagnosis Operation Date: 02/11/23 10:15 Previous section I identified the patient and participated in the time-out.: Yes Procedure Operation Date: 02/11/23 10:15 Low transverse section Surgeon Allen Fernandez MD, FACOG Model Set Artist . Estimated Blood Loss 600 Findings Consistent with Post-Op Diagnosis Specimens Cord blood Cord gases Description of Procedure Regional anesthetic had been given by anesthesia patient was prepped and draped with a leftward tilt preoperative antibiotics had been given in appropriate timing by anesthesiology. Once the prep was allowed to fully dry timeout was performed. Pickups with teeth were used to test the incision area was found to be adequate for incision as the patient did not feel sharp pain. Scalpel was used to make a Pfannenstiel incision on the lower abdomen. We then cut through the subcutaneous fat down to the level of the anterior rectus sheath fascia this was cut in the midline and then extended laterally with the curved Brothers scissors. At this stage we then placed 2 Liss clamps on the anterior aspect of the fascia. Using the curved Brothers's we are able to dissect the fascia superiorly away from the rectus muscles. Care was taken to maintain hemostasis. Liss clamps were then placed to the inferior aspect of the anterior sheath of the fascia. Fascia was then dissected away from the rectus muscles inferiorly towards the pubic bone. A Liss was then placed in the midline both inferiorly and superiorly. This was to allow exposure by retraction rectus muscles were in the midline with were then able to cut through the peritoneum and then enter the peritoneal cavity. Opening was enlarged to allow exposure of the peritoneal cavity both s uperiorly and inferiorly. Once adequate space was obtained a bladder retractor was placed to expose the lower segment Metzenbaums were used to dissect the bladder flap inferiorly away from the uterus. This was done sharply bladder retractor was then repositioned to expose the lower segment of the uterus Fresh scalpel was used to make a low transverse incision on the uterus. Uterus was then entered bluntly with the operators finger, membranes ruptured and the opening was enlarged using the operators fingers bluntly pulling superiorly and inferiorly to allow exposure. Baby was delivered by first flexion of the head elevation of the head out of the pelvis and then pressure by the front office medical assistant on the maternal abdomen. Baby's head was then delivered mouth and then nares were suctioned and then using gentle traction the baby was fully delivered. Live vigorous . Fluid was clear cord clamped and cut cord gases obtained cord blood obtained baby handed to pediatrics. Placenta removed was removed with traction we ensure the entire placenta was removed with a moist lap sponge into the uterus Uterus was then exteriorized. IV Pitocin had been started by anesthesia tone improved there were no extensions the uterus was then closed using 0 Monocryl in a 2 layer closure the first layer closed in a running locked fashion from left to right and then a second closure from left to right in a running nonlocked fashion. At this stage hemostasis was excellent. Uterus was placed back in the peritoneal cavity with suction irrigation out and inspection of the uterus at this stage revealed excellent hemostasis. Note there was a small defect after the second layer of closure in the low segment just below the incision this was reapproximated in the uterus with several [id number] 0 Monocryl sutures this was well intact and hemostatic afterwards and urine was clear afterwards Retractors were removed urine color was clear at this stage of the case we inspected the rectus muscles they were hemostatic fascia was closed with 0 Vicryl subcutaneous fat was irrigated and closed with 3-0 Vicryl skin closed with 4-0 subcuticular Monocryl I attest to the content of the Intraoperative Record and any orders documented therein. Any exceptions are noted below. OB Procedure Charges [id number]
[2023-02-11 11:48] LABS: Base Excess Cord Arterial Bld -2.5 mEq/L (-9-1.8); Base Excess Cord Venous Blood -0.8 mEq/L (-7.7-1.9); CO2 Cord Arterial Blood 65 mmHg (39.1-73.5); Cord Venous Blood HCO3 25 mmol/L (18.4-26.8); Cord Venous Blood PCO2 44 mmHg (30.4-57.2); Cord Venous Blood PO2 35 mmHg (14.1-43.3); Cord Venous Blood pH 7.36 (7.20-7.44); HCO3 Cord Arterial Blood 27 mmol/L (19.7-28.5); O2 Saturation Cord Venous Bld 61.3 % (<68); Oxygen Sat Cord Arterial Blood < 60.0 % (<60); PO2 Cord Arterial Blood 15 mmHg (4.1-31.7); pH Cord Arterial Blood 7.22 (7.1-7.38)
[2023-02-11] MEDS ORDERED: MAGNESIUM HYDROXIDE SUSP 30 ML UDC PO PRN (13:01)
[2023-02-11] MEDS ORDERED: SENNA 8.6 MG TAB PO PRN (13:01)
[2023-02-11] MEDS ORDERED: DIPHTHERIA/TETANUS/PERTUSSIS Vaccine (Tdap, Age 7+yrs) 0.5mL SYR/VL IM ONE (13:01)
[2023-02-11] MEDS ORDERED: BENZOCAINE 20% AER SPR 82.5 GM CAN EXT PRN (13:01)
[2023-02-11] MEDS ORDERED: HYDROCORTISONE ACETATE 25 MG SUPP PR PRN (13:01)
[2023-02-11] MEDS: SIMETHICONE 80 MG CHEW PO SCH ×3 (14:41→19:44)
[2023-02-11] MEDS: OXYTOCIN 20 UNITS in LACTATED RINGER'S 1,000 ML IV SCH ×2 (14:46→22:54)
[2023-02-11] MEDS: KETOROLAC 30 MG/ML VIAL IV PRN ×2 (17:12→22:34)
[2023-02-11] MEDS: DOCUSATE SODIUM 100 MG CAP PO SCH (19:44)
[2023-02-12] MEDS ORDERED: KETOROLAC 30 MG/ML VIAL IV PRN (04:53)
[2023-02-12] MEDS ORDERED: ONDANSETRON INJ 2 MG/ML 2 ML VIAL IV PRN (04:53)
[2023-02-12] MEDS ORDERED: PROMETHAZINE HCL 25 MG in SODIUM CHLORIDE 0.9% 50 ML IV PRN (04:53)
[2023-02-12] MEDS ORDERED: ceFAZolin 2000MG 2,000 MG/15 ML SYR IV SCH (06:00)
[2023-02-12] MEDS ORDERED: CITRIC ACID/SODIUM CITRATE 15 ML UDC PO SCH (06:00)
[2023-02-12] MEDS: IBUPROFEN 600 MG TAB PO PRN ×4 (06:12→20:50)
[2023-02-12] MEDS: oxyCODONE/ACETAMINOPHEN 5mg/325mg TAB PO PRN ×5 (06:13→20:49)
[2023-02-12 07:14] LABS: Basophils # (auto) 0.02 K/uL (0-0.2); Basophils % (auto) 0.2 %; Eosinophils # (auto) 0.09 K/uL (0-0.50); Eosinophils % (auto) 1.1 %; Hematocrit (blood only) 34.4 % (37.0-47.0); Immature Granulocytes # (auto) 0.04 K/uL (0.01-0.20); Immature Granulocytes % (auto) 0.5 %; Lymphocytes # (auto) 1.25 K/uL (1.2-3.4); Lymphocytes % (auto) 15.1 %; Mean Corpuscular Hemoglobin 31.8 pg (25.0-34.0); Mean Corpuscular Hgb Conc 34.9 g/dL (32.0-36.0); Mean Corpuscular Volume 91.2 fL (80.0-100.0); Monocytes # (auto) 0.62 K/uL (0.11-0.59); Monocytes % (auto) 7.5 %; Neutrophils # (auto) 6.24 K/uL (1.40-6.50); Neutrophils % (auto) 75.6 %; Platelet Count 156 K/uL (130-400); RDW Coefficient of Variation 13.2 % (11.5-14.5); RDW Standard Deviation 43.8 fL (36.4-46.3); Red Blood Count 3.77 M/uL (4.20-5.40); White Blood Count 8.26 K/ul (4.8-10.8)
--- NOTE | 2023-02-12 07:58 | Obstetrical Progress Note ---
Date of Service <Juan Biswas DO - Last Filed: 02/12/23 08:10> February 12, 2023 Assessment & Plan <Juan Biswas DO - Last Filed: 02/12/23 08:10> (1) state: (2) S/P section: Plan - Feels well today. Eating well, voiding well, ambulating well. - s/p C section on 02/11. - Pain well controlled with PRN pain meds. - Routine care -- OOB, ambulation, diet progression as tolerated - After discharge will have 6 week follow-up with Dr. Fernandez. Day #:: 1 <Jose M Hutchison MD - Last Filed: 02/14/23 08:07> (1) state: (2) S/P section: Subjective <Juan Biswas - Last Filed: 02/12/23 08:10> Ambulation: ambulating normally Voiding: no voiding problems Passing Gas:: Yes Diet Tolerance:: regular diet Lochia:: Small Feeding Type:: bottle feeding Current Pain Level(1-10): 4 Review of Systems Denies fever, chills, sweats Denies shortness of breath, difficulty breathing, chest pain, palpitations, chest pressure. Denies breast pain. Denies dysuria. Denies headache or changes in vision. Physical Exam <Juan Biswas DO - Last Filed: 02/12/23 08:10> General: Alert, oriented. No acute distress. Cardiac: Regular rate and rhythm, no murmurs/rubs/gallops. Respiratory: Clear to auscultation bilaterally a/p, no wheezes/rales/rhonchi. No increased work of breathing. Symmetrical chest rise. No respiratory distress. Abdomen: Soft, nontender, nondistended. Bowel sounds present. Uterus: Uterine fundus firm, palpable 1 cm below umbilicus. Lower Extremities: No lower extremity edema or swelling. No deep calf pain. Pedro Luis's negative bilaterally. Results & Data <Juan Biswas - Last Filed: 02/12/23 08:10> Vital Signs (Past 12 Hours) Vital Signs Temp Pulse Resp BP Pulse Ox O2 Del Method 02/12/23 04:45 36.7 C 86 18 105/68 98 Room Air 02/12/23 04:52 18 96 02/12/23 04:00 18 95 02/12/23 02:53 18 95 02/12/23 02:08 18 95 02/11/23 23:30 Room Air 02/12/23 00:00 18 96 02/12/23 01:05 18 95 02/11/23 23:08 18 97 02/11/23 23:08 36.7 C 78 18 101/64 97 Room Air 02/11/23 22:00 16 97 02/11/23 21:00 16 98 02/11/23 20:00 16 98 <Jose M Hutchison MD - Last Filed: 02/14/23 08:07> Co-Signing Physician Notes Patient seen with resident and agree with the above findings and plan. Routine care Resident Activity Tracking <Juan Biswas DO - Last Filed: 02/12/23 08:10> Resident Involvement: Resident Care Provided Care Provided: OB Delivery
[2023-02-12] MEDS: DOCUSATE SODIUM 100 MG CAP PO SCH ×2 (08:53→20:50)
[2023-02-12] MEDS: SIMETHICONE 80 MG CHEW PO SCH ×4 (08:53→20:50)
[2023-02-12] MEDS: PRENATAL VITAMIN 1 TAB PO SCH (08:53)
[2023-02-12] MEDS: FERROUS SULFATE 325 MG TAB PO SCH (08:53)
[2023-02-12] MEDS ORDERED: bisacodyL 5 MG TABEC PO SCH (20:00)
[2023-02-13] MEDS: oxyCODONE/ACETAMINOPHEN 5mg/325mg TAB PO PRN ×3 (05:41→20:39)
[2023-02-13] MEDS: IBUPROFEN 600 MG TAB PO PRN ×3 (05:42→19:10)
[2023-02-13 07:19] LABS: Hematocrit (blood only) 33.3 % (37.0-47.0); Hemoglobin 11.6 g/dl (12.0-16.0)
[2023-02-13] MEDS: DOCUSATE SODIUM 100 MG CAP PO SCH ×2 (08:20→21:31)
[2023-02-13] MEDS: PRENATAL VITAMIN 1 TAB PO SCH (08:20)
[2023-02-13] MEDS: SIMETHICONE 80 MG CHEW PO SCH ×4 (08:20→21:31)
[2023-02-13] MEDS: FERROUS SULFATE 325 MG TAB PO SCH (08:20)
--- NOTE | 2023-02-13 08:49 | Obstetrical Progress Note ---
Date of Service February 13, 2023 Assessment & Plan (1) S/P section: POD#2 doing well. Incision CDI. Feels ready for DC home today. Reviewed instructions. #20 percocet sent to pharmacy. Followup 6w PP. Subjective Ambulation: ambulating normally Voiding: no voiding problems Diet Tolerance:: regular diet Lochia:: Moderate Review of Systems All systems reviewed & are unremarkable except as noted in HPI & below Physical Exam Constitutional WD/WN, vitals as above no acute distress Respiratory normal respiratory effort Cardiovascular Rate/Rhythm: regular rate and regular rhythm Gastrointestinal (Abdomen) Inspection/Auscultation: abdomen normal to inspection; abdomen not distended Percussion/Palpation: abdomen soft Genitourinary OB Exam Abdomen: + fundal height Fundus: + firm; not tender Results & Data Vital Signs (Past 12 Hours) Vital Signs Temp Pulse Resp BP Pulse Ox O2 Del Method 02/12/23 23:15 36.7 C 79 18 102/64 95 Room Air
[2023-02-13] MEDS ORDERED: bisacodyL 10 MG SUPP PR PRN (11:40)
[2023-02-14] MEDS: IBUPROFEN 600 MG TAB PO PRN ×2 (00:10→08:01)
--- NOTE | 2023-02-14 07:50 | Obstetrical Progress Note ---
Date of Service February 14, 2023 Assessment & Plan (1) S/P section: POD#3 doing well, DC home today. Reviewed instructions. Subjective Ambulation: ambulating normally Voiding: no voiding problems Diet Tolerance:: regular diet Lochia:: Moderate Review of Systems All systems reviewed & are unremarkable except as noted in HPI & below Physical Exam Constitutional WD/WN, vitals as above no acute distress Respiratory normal respiratory effort Cardiovascular Rate/Rhythm: regular rate and regular rhythm Gastrointestinal (Abdomen) Inspection/Auscultation: abdomen normal to inspection; abdomen not distended Percussion/Palpation: abdomen soft Genitourinary OB Exam Abdomen: + fundal height Fundus: + firm; not tender Results & Data Vital Signs (Past 12 Hours) Vital Signs Temp Pulse Resp BP O2 Del Method 02/13/23 23:35 36.6 C 85 18 121/88 Room Air 02/13/23 21:26 36.6 C 87 18 123/80 Room Air
[2023-02-14] MEDS: SIMETHICONE 80 MG CHEW PO SCH (08:01)
[2023-02-14] MEDS: oxyCODONE/ACETAMINOPHEN 5mg/325mg TAB PO PRN (08:01)
[2023-02-14] MEDS: PRENATAL VITAMIN 1 TAB PO SCH (08:02)
[2023-02-14] MEDS: DOCUSATE SODIUM 100 MG CAP PO SCH (08:02)
[2023-02-14] MEDS: FERROUS SULFATE 325 MG TAB PO SCH (08:02)
--- NOTE | 2023-02-16 14:23 | Discharge Summary ---
Date of Service February 16, 2023 Admission Exam (Per Admitting) Constitutional WD/WN, vitals as above well developed and well nourished Respiratory normal respiratory effort, lungs clear to auscultation normal respiratory effort Cardiovascular RRR, no murmur, no edema Gastrointestinal (Abdomen) normal bowel sounds, soft, nontender, no hepatosplenomegaly Discharge Data Procedures Performed Operation Date: 02/11/23 10:15 Actual Procedures p Repeat Section; Live female child at 1104(Bilateral) - Allen Fernandez MD, [facility] Course (1) S/P section: POD#3 doing well, DC home today. Reviewed instructions. Supervising Physician Co-Signing Physician Notes Patient seen with resident and agree with the above findings and plan. Routine care Coding Level of Care Code None Diagnoses S/P section Z98.891
== END 2023-02-14 12:00 | disposition home or self-care (01) | DRG 788 ==
LOC: 4S1 08:28 → EDSTATUS 11:50 → 4E2 14:01
DX: Z3A.39 39 weeks gestation of pregnancy; Z37.0 Single live birth; O34.211 Maternal care for low transverse scar from previous cesarean delivery; Z87.891 Personal history of nicotine dependence

== ENCOUNTER 2024-12-14 05:37 | Inpatient (IN) ==
--- NOTE | 2024-11-30 12:45 | Anesthesiology Consultation ---
Date of Service November 30, 2024 Assessment & Plan (1) Encounter for pre-operative examination: Chart Review Chart Review: charge entry specialist initiated -Infectious Disease screening: Per PAT nursing assessment on 11/30/24. No known infectious disease contacts in past 10 days or current infectious disease symptoms. No recent travel outside the country. Repeat 02/11/23= Done under SAB at L4-5 with 1 attempt. (Initial c- section done in 2017 due to failure to progress) History Surgery Operation Date: 12/14/24 07:30 Proposed Procedures p Section (Delivery of Baby Through Abdominal Incision), - Allen Fernandez MD, FACOG s With Bilateral Tubal Ligation - Allen Fernandez MD, FACOG Height/Weight Height: 4 ft 11 in Weight: 74.843 kg Allergies Allergy/AdvReac Type Severity Reaction Status Date / Time diphenhydramine Allergy Severe ANAPHYLAXIS Verified 11/30/24 12:07 Medications Home Medications Medication Instructions Recorded Confirmed Last Taken prenat.vits,antonio,czn-[id number] 1 tab PO DAILY 07/07/22 11/30/24 Unknown Past Medical History Medical History No known health problems Rh negative status during Past Family History Family History Denies family history of Ovarian cancer Breast cancer Colorectal cancer Past Surgical History Surgical History S/P section x2 S/P loop electrosurgical excision procedure Social History Smoking Status: Former smoker tobacco type: cigarettes Do You Dip or Chew Tobacco: No Smoking End Date: quit ~8 yrs ago Hx Alcohol Use: No Hx Substance Use: No substance use type: does not use
[2024-12-14] MEDS: LACTATED RINGER'S 1,000 ML IV SCH (06:00)
[2024-12-14 06:04] LABS: Basophils # (auto) 0.02 K/uL (0.00-0.20); Basophils % (auto) 0.3 %; Eosinophils # (auto) 0.05 K/uL (0.00-0.50); Eosinophils % (auto) 0.8 %; Hematocrit (blood only) 32.6 % (37.0-47.0); Hemoglobin 10.8 g/dl (12.0-16.0); Immature Granulocytes # (auto) 0.04 K/uL (0.01-0.20); Immature Granulocytes % (auto) 0.6 %; Lymphocytes # (auto) 1.68 K/uL (1.20-3.40); Lymphocytes % (auto) 26.7 %; Mean Corpuscular Hemoglobin 28.1 pg (25.0-34.0); Mean Corpuscular Hgb Conc 33.1 g/dL (32.0-36.0); Mean Corpuscular Volume 84.7 fL (80.0-100.0); Mean Platelet Volume 8.8 fL (9.4-12.4); Monocytes # (auto) 0.58 K/uL (0.11-0.59); Monocytes % (auto) 9.2 %; Neutrophils # (auto) 3.92 K/uL (1.40-6.50); Neutrophils % (auto) 62.4 %; Platelet Count 189 K/uL (130-400); RDW Coefficient of Variation 13.7 % (11.5-14.5); RDW Standard Deviation 42.3 fL (36.4-46.3); Red Blood Count 3.85 M/uL (4.20-5.40); White Blood Count 6.29 K/ul (4.8-10.8)
[2024-12-14] MEDS: ACETAMINOPHEN 500 MG TAB PO STA (06:24)
--- NOTE | 2024-12-14 06:32 | History & Physical Report ---
Date of Service December 14, 2024 Assessment & Plan (1) Encounter for pre-operative examination: Plan: Repeat section. Bilateral tubal ligation. The patient was counseled to the nature of the procedure including alternatives such as labor. Risks were discussed including bleeding infection injury to bowel bladder ureter vessels and even baby. The risks of internal organ injury were discussed as being higher with prior sections. Deep Vein Thrombosis, pulmonary embolus and breakdown of the incision discussed. Deep vein thrombosis pulmonary embolus hernia and failure of the incision to heal were discussed. failure of tubal discussed. Patient verbalized understanding of this and was given ample time to ask questions Admission and Anticipated Discharge Date Admission Date: December 14, 2024 History of Present Illness Primary Care Provider: NO PCP Current Estimate 12/18/24 LMP (Certain) 39w 2d Other Estimates 12/19/24 Ultrasound #1 39w 1d LMP: 03/13/24 : 3 Full term: 2 Premature: 0 Total Number of Induced Abortions: 0 Total Number of Spontaneous Abortions: 0 Ectopics: 0 Multiple births: 0 Number of Living Children: 2 and Delivery Plans Previous x2 Schedule repeat @ 28wk C/S WITH TUBAL SCHEDULED FOR 12/14/[address] LYNCH AND DR. CRESPO ASSIST Need for Rhogam d/t Rh negative mother - declines see 10/11 note. Discussed and pt aware of risks. Rubella Equivocal *PPX MMR Allergies Allergy/AdvReac Type Severity Reaction Status Date / Time diphenhydramine Allergy Severe ANAPHYLAXIS Verified 12/13/24 09:06 Home Medications Medication Instructions Recorded Confirmed Type prenat.vits,antonio,[id number] 1 tab PO DAILY 07/07/22 12/14/24 History Patient History Medical History No known health problems Rh negative status during Surgical History S/P section x2 S/P loop electrosurgical excision procedure Family History Denies family history of Ovarian cancer Breast cancer Colorectal cancer Social History Smoking Status: Former smoker Tobacco Type: Cigarettes Smoking End Date: quit ~8 yrs ago; Second Hand Exposure: No; Do You Dip or Chew Tobacco: No; Tobacco Cessation Education Requested by Patient: No Hx Alcohol Use: No Hx Substance Use: No Preferred Language: Lebanese Communication Ability: Effective Coating And Embossing Unit Operator Required: No Beliefs That Will Affect Care: None marital status: marital status details: Josué Mendoza (34) [phone] Current Living Situation: Spouse and Family Current Living Situation Comment: and 2 daughters. 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 Other Information That Helps Us Care for You: No Feels Safe at Home: Yes Safety Concerns: Feels Safe At This Time Assistive Devices: None Physical Exam Constitutional: WD/WN, vitals as above well developed and well nourished Respiratory: normal respiratory effort, lungs clear to auscultation normal respiratory effort Cardiovascular: RRR, no murmur, no edema Gastrointestinal (Abdomen): normal bowel sounds, soft, nontender, no he patosplenomegaly Results & Data Vital Signs (Past 12 Hours) Vital Signs Temp Pulse Resp BP Pulse Ox 12/14/24 06:26 89 98 12/14/24 05:51 98.6 F 18 12/14/24 05:47 89 125/66 Coding Level of Care Code None Diagnoses Encounter for pre-operative examination Z01.818
[2024-12-14] MEDS: CITRIC ACID/SODIUM CITRATE 15 ML UDC PO ONE (07:27)
[2024-12-14] MEDS: ceFAZolin 2000MG 2,000 MG/15 ML SYR IV ONE (07:30)
[2024-12-14] MEDS ORDERED: MoRPHine SULFATE PF 1 MG/ML 10 ML AMP/VIAL ONE (07:30)
[2024-12-14] MEDS ORDERED: PHENYLEPHRINE HCL 25 MG/250 ML NSS IV ONE (07:30)
[2024-12-14] MEDS ORDERED: ONDANSETRON INJ 2 MG/ML 2 ML VIAL ONE (07:34)
[2024-12-14] MEDS ORDERED: OXYTOCIN 10 UNITS/ML VIAL ONE ×2 (07:56→08:19)
--- NOTE | 2024-12-14 08:50 | Operative Report ---
PG Post Operative Report Pre & Post Diagnosis Operation Date: 12/14/24 07:30 Pre-Op Diagnosis: 1. Repeat Section 2. 39 Weeks 3. Requests Sterilization Post-Op Diagnosis: Same I identified the patient and participated in the time-out.: Yes Procedure Operation Date: 12/14/24 07:30 Actual Procedures p Section in LD; Repeat Lower Uterine Transverse Section for the of a live boy infant at 0802; Bilateral Tubal Ligation.(Bilateral) - Allen Fernandez MD, FACOG Surgeon Allen Fernandez MD, FACOG Shoelace Tipping Machine Operator Dr. Ortega Estimated Blood Loss 360 Findings Consistent with Post-Op Diagnosis Specimens Cord blood bilateral fallopian tubes Description of Procedure Regional anesthetic had been given by anesthesia patient was prepped and draped with a leftward tilt preoperative antibiotics had been given in appropriate timing by anesthesiology. Once the prep was allowed to fully dry timeout was performed. Pickups with teeth were used to test the incision area was found to be adequate for incision as the patient did not feel sharp pain. Scalpel was used to make a Pfannenstiel incision on the lower abdomen. We then cut through the subcutaneous fat down to the level of the anterior rectus sheath fascia this was cut in the midline and then extended laterally with the curved Brothers scissors. At this stage we then placed 2 Liss clamps on the anterior aspect of the fascia. Using the curved Brothers's we are able to dissect the fascia superiorly away from the rectus muscles. Care was taken to maintain hemostasis. Liss clamps were then placed to the inferior aspect of the anterior sheath of the fascia. Fascia was then dissected away from the rectus muscles inferiorly towards the pubic bone. A Liss was then placed in the midline both inferiorly and superiorly. This was to allow exposure by retraction rectus muscles were in the midline with were then able to cut through the peritoneum and then enter the peritoneal cavity. Opening was enlarged to allow exposure of the peritoneal cavity both superiorly and inferiorly. Once adequate space was obtained a bladder retractor was placed to expose the lower segment Metzenbaums were used to dissect the bladder flap inferiorly away from the uterus. This was done sharply bladder retractor was then repositioned to expose the lower segment of the uterus Fresh scalpel was used to make a low transverse incision on the uterus. Uterus was then entered bluntly with the operators finger, membranes ruptured and the opening was enlarged using the operators fingers bluntly pulling superiorly and inferiorly to allow exposure. Baby was delivered by first flexion of the head elevation of the head out of the pelvis and then pressure by the computer assistant on the maternal abdomen. Baby's head was then delivered mouth and then nares were suctioned and then using gentle traction the baby was fully delivered. Live vigorous infant. Fluid was clear cord clamped and cut cord gases obtained cord blood obtained baby handed to pediatrics. Placenta removed was removed with traction we ensure the entire placenta was removed with a moist lap sponge into the uterus Uterus was then exteriorized. IV Pitocin had been started by anesthesia tone improved there were no extensions the uterus was then closed using 0 Monocryl in a 2 layer closure the first layer closed in a running locked fashion from left to right and then a second closure from left to right in a running nonlocked fashion. At this stage hemostasis was excellent. Tubal was performed by grabbing the tube with a [place] using the LigaSure to carefully coagulate and cut the blood supply to the tube and carefully identifying the February once the tube was fully removed the same process was repeated on the left side both tubes were removed should be noted after placement of the uterus back in the peritoneal cavity both tubal areas were hemostatic on inspection ovaries appeared normal Uterus was placed back in the peritoneal cavity with suction irrigation out and inspection of the uterus at this stage revealed excellent hemostasis Retractors were removed urine color was clear at this stage of the case we inspected the rectus muscles they were hemostatic fascia was closed with 0 Vicryl subcutaneous fat was irrigated and closed with 3-0 Vicryl skin closed with 4-0 subcuticular Monocryl I attest to the content of the Intraoperative Record and any orders documented therein. Any exceptions are noted below. OB Procedure Charges [id number] Add on Tubal for C/S
[2024-12-14] MEDS ORDERED: LACTATED RINGER'S 500 ML IV PRN (08:55)
[2024-12-14] MEDS ORDERED: NALOXONE HCL 1 MG in SODIUM CHLORIDE 0.9% 1,000 ML IV PRN (08:55)
[2024-12-14] MEDS ORDERED: ONDANSETRON INJ 2 MG/ML 2 ML VIAL IV PRN (08:55)
[2024-12-14] MEDS ORDERED: MoRPHine SULFATE PF 1 MG/ML 10 ML AMP/VIAL INT SPINAL ONE (08:55)
[2024-12-14] MEDS ORDERED: MoRPHine SULFATE 2 MG/ML CARP IV PRN (08:55)
[2024-12-14] MEDS ORDERED: MEPERIDINE HCL 25 MG/ML CARP/VIAL IV PRN (08:55)
[2024-12-14] MEDS ORDERED: HYDROmorphone INJ 0.5 MG/0.5 ML SYR IV PRN (08:55)
[2024-12-14] MEDS ORDERED: ePHEDrine sulfate 50 MG/ML AMP IV PRN (08:55)
[2024-12-14] MEDS ORDERED: PROMETHAZINE 6.25 MG/50.25 ML BAG IV PRN (08:55)
[2024-12-14] MEDS ORDERED: NALOXONE HCL 0.4 MG/1 ML VIAL/CARP IV PRN (08:55)
[2024-12-14] MEDS ORDERED: NALOXONE HCL 0.08 MG in SYRINGE 1.8 ML IV PRN (08:55)
[2024-12-14] MEDS ORDERED: oxyCODONE HCL IR 5 MG TAB (IMMEDIATE RELEASE) PO PRN (08:55)
[2024-12-14] MEDS ORDERED: DC INTRASPINAL MORPHINE SCH (09:00)
[2024-12-14] MEDS ORDERED: NO NARCOTICS OR SEDATIVES SCH (09:00)
[2024-12-14] MEDS ORDERED: SODIUM CHLORIDE 0.9% 1,000 ML IV SCH (09:00)
[2024-12-14] MEDS ORDERED: KETOROLAC 30 MG/ML VIAL ONE (09:13)
[2024-12-14] MEDS ORDERED: DIPHTHER/TETAN/PERTUS Vaccine (Tdap, Adol/Adult) 0.5mL IM ONE (09:14)
[2024-12-14] MEDS ORDERED: MAGNESIUM HYDROXIDE SUSP 30 ML UDC PO PRN (09:14)
[2024-12-14] MEDS ORDERED: SENNA 8.6 MG TAB PO PRN (09:14)
[2024-12-14] MEDS ORDERED: BENZOCAINE 20% SPRY 85 APPLN/85 GM CAN EXT PRN (09:14)
[2024-12-14] MEDS ORDERED: CALCIUM CARBONATE 500 MG CHEWABLE TAB PO PRN (09:14)
[2024-12-14] MEDS ORDERED: LACTATED RINGER'S 1,000 ML IV SCH (09:14)
[2024-12-14] MEDS ORDERED: HYDROCORTISONE ACETATE 25 MG SUPP PR PRN (09:14)
[2024-12-14] MEDS ORDERED: OXYTOCIN 20 UNITS/LR 1,002 ML IV SCH (09:14)
[2024-12-14] MEDS: NALBUPHINE HCL INJ 10 MG/ML AMP IV PRN (09:16)
[2024-12-14] MEDS: KETOROLAC 30 MG/ML VIAL IV SCH (09:22)
--- NOTE | 2024-12-14 10:41 | Anesthesiology Progress Note ---
Date of Service December 14, 2024 Anesthesia Post Procedure Vital Signs Vital Signs: Temp Pulse Resp BP Pulse Ox 12/14/24 10:38 80 92 12/14/24 10:36 89 91 12/14/24 10:33 75 98 12/14/24 10:30 78 158/78 H 91 12/14/24 10:28 74 100 12/14/24 10:23 73 99 12/14/24 10:20 74 18 127/83 99 12/14/24 10:20 74 127/83 92 12/14/24 10:18 82 94 12/14/24 10:14 82 93 12/14/24 10:13 83 97 12/14/24 10:10 77 124/83 12/14/24 10:08 71 97 12/14/24 10:03 73 96 12/14/24 10:00 96 H 134/74 12/14/24 09:58 77 97 12/14/24 09:53 77 94 12/14/24 09:52 80 93 12/14/24 09:50 83 18 131/87 97 12/14/24 09:50 82 131/87 12/14/24 09:48 72 97 12/14/24 09:46 83 93 12/14/24 09:43 77 97 12/14/24 09:40 80 118/78 12/14/24 09:39 80 18 113/78 97 12/14/24 09:38 78 92 12/14/24 09:33 95 12/14/24 09:33 76 12/14/24 09:33 80 93 12/14/24 09:30 78 18 112/79 99 12/14/24 09:30 78 112/79 12/14/24 09:28 77 99 12/14/24 09:23 97 12/14/24 09:23 80 12/14/24 09:23 79 92 12/14/24 09:20 62 18 118/81 98 12/14/24 09:20 62 118/81 12/14/24 09:18 76 98 12/14/24 09:13 79 98 12/14/24 09:10 79 18 112/72 97 12/14/24 09:10 72 112/72 12/14/24 09:08 76 95 12/14/24 09:03 83 98 12/14/24 09:00 84 18 109/68 98 05/02/25 09:00 84 109/68 12/14/24 08:58 87 L 12/14/24 08:58 76 12/14/24 08:58 76 90 12/14/24 08:53 78 97 12/14/24 08:50 36.5 C 77 18 122/68 12/14/24 08:50 75 122/68 12/14/24 08:48 76 98 12/14/24 07:26 88 97 12/14/24 07:21 86 97 12/14/24 07:18 77 121/87 12/14/24 07:16 81 97 12/14/24 07:11 36.9 C 83 16 96 12/14/24 07:06 82 97 12/14/24 07:01 82 97 12/14/24 06:56 82 97 12/14/24 06:51 79 98 12/14/24 06:46 84 97 12/14/24 06:41 85 98 12/14/24 06:36 85 97 12/14/24 06:31 86 97 12/14/24 06:26 89 98 12/14/24 05:51 37.0 C 18 12/14/24 05:47 89 125/66 Transfer of Care Handoff Completed per policy Notes Mental Status: alert / awake / arousable Nausea / Vomiting: adequately controlled Pain: adequately controlled Airway Patency, RR, SpO2: stable & adequate BP & HR: stable & adequate Hydration State: stable & adequate Neuraxial Anesthesia: was administered and sensory block is resolving Anesthetic Complications: no major complications apparent and Pt Satisfied with anesthetic care
[2024-12-14] MEDS: ACETAMINOPHEN 325 MG TAB PO SCH (15:49)
[2024-12-14] MEDS: SIMETHICONE 80 MG CHEW PO SCH (15:49)
[2024-12-14] MEDS: DOCUSATE SODIUM 100 MG CAP PO SCH (20:45)
[2024-12-15] MEDS ORDERED: HYDROmorphone INJ 0.5 MG/0.5 ML SYR IV PRN (02:56)
[2024-12-15] MEDS ORDERED: PROMETHAZINE 12.5 MG/50.5 ML BAG IV PRN (02:56)
[2024-12-15] MEDS ORDERED: ONDANSETRON INJ 2 MG/ML 2 ML VIAL IV PRN (02:56)
[2024-12-15 06:39] LABS: Basophils # (auto) 0.03 K/uL (0.00-0.20); Basophils % (auto) 0.5 %; Eosinophils # (auto) 0.07 K/uL (0.00-0.50); Eosinophils % (auto) 1.1 %; Hematocrit (blood only) 26.8 % (37.0-47.0); Hemoglobin 8.7 g/dl (12.0-16.0); Immature Granulocytes # (auto) 0.04 K/uL (0.01-0.20); Immature Granulocytes % (auto) 0.6 %; Lymphocytes % (auto) 25.6 %; Mean Corpuscular Hemoglobin 28.3 pg (25.0-34.0); Mean Corpuscular Hgb Conc 32.5 g/dL (32.0-36.0); Mean Corpuscular Volume 87.3 fL (80.0-100.0); Mean Platelet Volume 8.7 fL (9.4-12.4); Monocytes # (auto) 0.54 K/uL (0.11-0.59); Monocytes % (auto) 8.1 %; Neutrophils # (auto) 4.25 K/uL (1.40-6.50); Neutrophils % (auto) 64.1 %; Platelet Count 161 K/uL (130-400); RDW Standard Deviation 43.6 fL (36.4-46.3); Red Blood Count 3.07 M/uL (4.20-5.40); White Blood Count 6.63 K/ul (4.8-10.8)
--- NOTE | 2024-12-15 07:58 | Obstetrical Progress Note ---
Date of Service December 15, 2024 Assessment & Plan (1) care following delivery: Plan stable, routine care. will need mmr --ordered, baby rh neg. bottle feeding. ri. hgb reviewed. Day #:: 1 Subjective Ambulation: ambulating normally Voiding: no voiding problems Diet Tolerance:: regular diet Lochia:: Small Feeding Type:: bottle feeding no concerns. feels really well, better than last c/s which was a repeat and thinks it is due to early ambulation. Constitutional: + as per Subjective / HPI Physical Exam Constitutional WD/WN, vitals as above Respiratory normal respiratory effort, lungs clear to auscultation Cardiovascular Rate/Rhythm: regular rate and regular rhythm Gastrointestinal (Abdomen) Inspection/Auscultation: abdomen normal to inspection and + abdominal surgical incision (c/d/i with steris, dried blood) Percussion/Palpation: abdomen soft Fundus firm 2cm down Musculoskeletal nt calves no edema Neurologic grossly normal Psychiatric A+Ox3, euthymic affect Results & Data Vital Signs (Past 12 Hours) Vital Signs Temp Pulse Resp BP Pulse Ox O2 Del Method 12/15/24 03:30 98.6 F 83 16 106/70 96 Room Air 12/14/24 23:30 18 97 12/14/24 23:01 98.2 F 78 18 105/70 97 Room Air 12/14/24 20:00 16 98
[2024-12-15] MEDS: PRENATAL VITAMIN 1 TAB PO SCH (08:21)
[2024-12-15] MEDS ORDERED: KETOROLAC 30 MG/ML VIAL IV PRN (08:47)
[2024-12-15] MEDS: IBUPROFEN 600 MG TAB PO SCH (09:28)
[2024-12-15] MEDS: oxyCODONE HCL IR 5 MG TAB (IMMEDIATE RELEASE) PO PRN (10:54)
[2024-12-15] MEDS: MEASLES, MUMPS & RUBELLA VIRUS VACCINE (MMR) 0.5ML VIAL SQ ONE (15:42)
[2024-12-15] MEDS: bisacodyL 5 MG TABEC PO SCH (20:06)
[2024-12-16 07:05] LABS: Hematocrit (blood only) 28.9 % (37.0-47.0); Hemoglobin 9.3 g/dl (12.0-16.0)
[2024-12-16 08:31] VITALS: BP 120/82; PULSE 83; RESP 18; TEMP 98.8; O2SAT 96
[2024-12-16] MEDS ORDERED: IBUPROFEN 600 MG TAB PO PRN (08:47)
[2024-12-16] MEDS ORDERED: bisacodyL 10 MG SUPP PR PRN (08:47)
--- NOTE | 2024-12-16 09:23 | Obstetrical Progress Note ---
Date of Service December 16, 2024 Assessment & Plan (1) care following delivery: post op day 2 from c/s All questions were answered incision was inspected and found to be clean dry and intact extremity exam was negative for tenderness patient has no significant depressive symptoms Postoperative from section patient meets discharge criteria as she is ambulating well tolerating an oral diet has minimal bleeding and no extremity pain. Discharge instructions were reviewed and prescriptions were sent to her pharmacy of choice patient advised to call with any concerns and follow-up in the office discussed. Subjective Ambulation: ambulating normally Voiding: no voiding problems Passing Gas:: No Diet Tolerance:: regular diet Lochia:: Small Physical Exam Constitutional WD/WN, vitals as above well developed and well nourished Respiratory normal respiratory effort, lungs clear to auscultation normal respiratory effort Cardiovascular RRR, no murmur, no edema Gastrointestinal (Abdomen) normal bowel sounds, soft, nontender, no hepatosplenomegaly Results & Data Vital Signs (Past 12 Hours) Vital Signs Temp Pulse Resp BP Pulse Ox O2 Del Method 12/16/24 07:45 98.8 F 83 18 120/82 96 Room Air 12/15/24 23:11 97.7 F 81 16 114/78 97 Room Air
[2024-12-16] MEDS ORDERED: ACETAMINOPHEN 325 MG TAB PO PRN (14:47)
== END 2024-12-16 10:43 | disposition home or self-care (01) | DRG 785 ==
LOC: 4S1 05:37 → EDSTATUS 07:30 → 4E2 11:10